=== PATIENT | male | born 1985 | race Caucasian/White ===

== ENCOUNTER 2017-10-16 15:52 | Outpatient (CLI) | payer OTHER ==
--- NOTE | 2017-10-17 11:24 | MRI Report ---
EXAM: MRI OF THE PECTORALIS MAJOR MUSCLE AND TENDON AND CHEST WITHOUT CONTRAST. EXAM DATE: 10/16/2017 05:29 PM CLINICAL HISTORY: Chronic right pectoralis muscle pain. COMPARISON: None. TECHNIQUE: Multiplanar multisequence MR images of the right pectoralis muscle and tendon and chest wi thout contrast. FINDINGS: The right pectoralis major tendon is intact. No muscle edema. The other visualized muscles and tendon s are unremarkable. Subcutaneous tissues are unremarkable. Incidentally, there is an approximately 2 x 1.4 cm enlarged mediastinal lymph node at the aortopulmon taylor window. There is a 2.2 x 0.9 cm borderline-enlarged subcarinal lymph node. No axillary lymphadeno akshat. The visualized osseous structures are unremarkable. IMPRESSION: 1. No evidence of right pectoralis major tendon tear. 2. Incidental finding of enlarged mediastinal lymph node at the aortopulmonary window. Borderline enl arged subcarinal lymph node. Recommend a follow-up chest CT with intravenous contrast. [facility] Referring Provider Line: [phone] SITE ID: [id number]
== END 2017-10-16 15:53 | disposition home or self-care (01) ==
LOC: DI 15:52
PROVIDERS: ATTEND Orthopaedic Surgery
DX: M25.511 Pain in right shoulder (principal)
CPT/HCPCS: 71550